=== PATIENT | female | born 2000 | race Caucasian/White ===

== ENCOUNTER 2019-07-24 21:27 | Inpatient (IN) | payer MEDICAID, SELFPAY ==
[2019-07-24] MEDS ORDERED: CLINDAMYCIN 600MG/D5W 600 MG/50 ML BAG IV ONE (22:34)
[2019-07-24] MEDS ORDERED: NA CHLORIDE 0.9% 500 ML ONE (22:34)
[2019-07-24] MEDS ORDERED: NA CHLORIDE 0.9% 2,000 ML ONE (22:34)
[2019-07-24 22:45] LABS: Absolute Lymphocytes (CBC) 1.8 K/uL (0.7-4.9); Basophils % 0.6 % (0-1.3); Hematocrit 36.3 % (36.0-45.0); Lymphocytes % 12.4 % (15.3-44.8); MPV 8.2 fL (7.6-11.3); RBC Red Blood Cell Count 4.32 M/uL (3.86-4.86)
[2019-07-24 22:48] LABS: Protime INR 1.11
[2019-07-24 23:07] LABS: ALT/SGPT 17 U/L (12-78); AST/SGOT 12 U/L (15-37); Albumin 3.5 g/dL (3.4-5.0); Alkaline Phosphatase 125 U/L (45-117); BUN Blood Urea Nitrogen 13 mg/dL (7-18); Bicarbonate 24 mmol/L (21-32); Bilirubin Direct 0.1 mg/dL (0-0.2); Bilirubin Total 0.3 mg/dL (0.2-1.0); CKMB Creatine Kinase MB < 1.0 ng/mL (0.3-3.6); Creatine Phosphokinase 46 U/L (26-192); Glucose Level 90 mg/dL (74-106); Lipase 173 U/L (73-393); Potassium 3.7 mmol/L (3.5-5.1); Protein, Total 8.2 g/dL (6.4-8.2); Sodium Level 137 mmol/L (136-145); Troponin (Emerg Dept Use Only) < 0.02 ng/mL (0.0-0.045)
[2019-07-24] MEDS ORDERED: IBUPROFEN 400 MG TAB ONE (23:14)
[2019-07-24] MEDS ORDERED: HYDROCODONE/APAP 5/325 MG TAB ONE (23:14)
[2019-07-25 00:02] LABS: Urine Blood TRACE (NEG); Urine Glucose NEGATIVE (NEG); Urine Protein 1+ (NEG)
[2019-07-25 00:03] LABS: Urine Bacteria >50 /HPF (<20); Urine Culture Reflex Order REFLEXED; Urine RBC <5 /HPF (NONE SEEN)
[2019-07-25] MEDS ORDERED: GENTAMICIN SULF 80 MG/2ML INJ ONE (00:40)
[2019-07-25] MEDS ORDERED: ONDANSETRON 4 MG/2 ML VIAL IV PRN (00:54)
[2019-07-25] MEDS ORDERED: MORPHINE 2 MG/ML SYR IV PRN (00:54)
[2019-07-25] MEDS ORDERED: ACETAMINOPHEN 500 MG TAB PO PRN (00:54)
[2019-07-25] MEDS ORDERED: NA CHLORIDE 0.9% 100 ML IV ONE (00:54)
[2019-07-25] MEDS ORDERED: NA CHLORIDE 0.9% 1,000 ML IV SCH (01:00)
--- NOTE | 2019-07-25 01:41 | EDPHYS ---
Physician Documentation [facility] Name: Marek Cage Age: 19 yrs Sex: Female : 2000 Arrival Date: 07/24/2019 Time: 21:29 Bed 26 Private MD: ED Physician Guido Skelton HPI: 07/24 22:39 This 19 yrs old Female presents to ER via Ambulatory with complaints of Fever. snw 22:39 The patient reports fever, that was measured at 103 degrees Fahrenheit. Onset: The snw symptoms/episode began/occurred suddenly, 3 day(s) ago, and became worse today. Modifying factors: there are no obvious modifying factors. Associated signs and symptoms: Pertinent positives: abdominal pain, chills. Severity of symptoms: At their worst the symptoms were moderate severe. The patient has not experienced similar symptoms in the past. vaginal delivery 2 weeks ago of 1st baby, noted vaginal dc and fever x three days, fever today spiked to 103. 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 - Social history:: Smoking status: Patient/guardian denies using tobacco. - Ebola Screening: : Patient denies travel to an Ebola-affected area in the 21 days before illness onset. ROS: 22:37 Constitutional: Positive for fever, chills x 3 days, negative weight loss, Eyes: snw Negative for injury, pain, redness, and discharge, Neck: Negative for injury, pain, and swelling, Cardiovascular: Negative for chest pain, palpitations, and edema, Respiratory: Negative for shortness of breath, cough, wheezing, and pleuritic chest pain. 22:37 Back: Negative for injury and pain. 22:37 MS/Extremity: Negative for injury and deformity, Skin: Negative for injury, rash, and discoloration, Neuro: Negative for headache, weakness, numbness, tingling, and seizure, Psych: Negative for depression, anxiety, suicide ideation, homicidal ideation, and hallucinations. 22:37 Abdomen/GI: Positive for abdominal pain, of the suprapubic area, right lower quadrant and left lower quadrant. 22:37 : Positive for vaginal discharge. Exam: 22:37 Head/Face: Normocephalic, atraumatic. Eyes: Pupils equal round and reactive to light, snw extra-ocular motions intact. Lids and lashes normal. Conjunctiva and sclera are non-icteric and not injected. Cornea within normal limits. Periorbital areas with no swelling, redness, or edema. ENT: Nares patent. No nasal discharge, no septal abnormalities noted. Tympanic membranes are normal and external auditory canals are clear. Oropharynx with no redness, swelling, or masses, exudates, or evidence of obstruction, uvula midline. Mucous membranes moist. Neck: Trachea midline, no thyromegaly or masses palpated, and no cervical lymphadenopathy. Supple, full range of motion without nuchal rigidity, or vertebral point tenderness. No Meningismus. Chest/axilla: Normal chest wall appearance and motion. Nontender with no deformity. No lesions are appreciated. 22:37 Respiratory: Lungs have equal breath sounds bilaterally, clear to auscultation and percussion. No rales, rhonchi or wheezes noted. No increased work of breathing, no retractions or nasal flaring. Back: No spinal tenderness. No costovertebral tenderness. Full range of motion. Skin: Warm, dry with normal turgor. Normal color with no rashes, no lesions, and no evidence of cellulitis. MS/ Extremity: Pulses equal, no cyanosis. Neurovascular intact. Full, normal range of motion. Neuro: Awake and alert, GCS 15, oriented to person, place, time, and situation. Cranial nerves II-XII grossly intact. Motor strength 5/5 in all extremities. Sensory grossly intact. Cerebellar exam normal. Normal gait. Psych: Awake, alert, with orientation to person, place and time. Behavior, mood, and affect are within normal limits. 22:37 Constitutional: The patient appears alert, awake, febrile, uncomfortable. 22:37 Cardiovascular: Rate: tachycardic, Heart sounds: normal. 22:37 Abdomen/GI: Inspection: abdomen appears normal, Bowel sounds: normal, Palpation: moderate abdominal tenderness, in the right lower quadrant and left lower quadrant. Vital Signs: 21:47 BP 140 / 96; Pulse 132; Resp 20; Temp 102.7; Pulse Ox 99% on R/A; Height 6 ft. 0 in. aj1 (182.88 cm) (R); Pain 7/10; 22:20 Weight 72.57 kg; tr5 23:00 BP 124 / 85; Pulse 79; Resp 19; Pulse Ox 99% on R/A; tr5 07/25 00:30 BP 119 / 73; Pulse 79; Resp 18; Pulse Ox 99% on R/A; tr5 01:10 BP 118 / 73; Pulse 78; Resp 16; Pulse Ox 100% ; tr5 01:30 Temp 98.8(O); tr5 07/24 22:20 Body Mass Index 21.70 (72.57 kg, 182.88 cm) tr5 MDM: 07/24 22:17 Patient medically screened. [facility] 07/25 01:17 Data reviewed: vital signs, nurses notes. Data interpreted: Pulse oximetry: on room air snw is 100 %. Interpretation: normal. Counseling: I had a detailed discussion with the patient and/or guardian regarding: the historical points, exam findings, and any diagnostic results supporting the discharge/admit diagnosis, lab results, radiology results, the need for further work-up and treatment in the hospital. Physician consultation: Tayo Liu MD was called at 01:20, was contacted at 01:20, regarding admission, to the medical/surgical unit. 07/24 22:16 Order name: Basic Metabolic Panel [facility] 07/24 22:16 Order name: Blood Culture Adult (2) [facility] 07/24 22:16 Order name: CBC with Diff [facility] 07/24 22:16 Order name: Ckmb [facility] 07/24 22:16 Order name: CPK; Complete Time: 23:17 w 07/24 22:16 Order name: Lactate; Complete Time: 22:57 [facility] 07/24 22:16 Order name: LFT's; Complete Time: 23:17 w 07/24 22:16 Order name: Lipase; Complete Time: 23:17 w 07/24 22:16 Order name: Procalcitonin; Complete Time: 23:46 w 07/24 22:16 Order name: Protime (+inr); Complete Time: 23:17 w 07/24 22:16 Order name: Ptt, Activated; Complete Time: 23:17 snw 07/24 22:16 Order name: Troponin (emerg Dept Use Only); Complete Time: 23:17 [facility] 07/24 22:16 Order name: Urine Microscopic Only; Complete Time: 00:13 [facility] 07/24 22:18 Order name: Basic Metabolic Panel; Complete Time: 23:17 [facility] 07/24 22:16 Order name: Chest Single View XRAY [facility] 07/24 22:16 Order name: CT Abd/Pelvis - IV Contrast Only [facility] 07/24 22:18 Order name: Blood Culture [facility] 07/24 22:18 Order name: CBC with Automated Diff; Complete Time: 23:17 [facility] 07/24 22:18 Order name: CKMB Creatine Kinase MB; Complete Time: 23:17 [facility] 07/24 22:48 Order name: Urine Dipstick--Ancillary (enter results); Complete Time: 00:13 [facility] 07/24 22:48 Order name: Urine --Ancillary (enter results); Complete Time: 00:13 [facility] 07/24 23:37 Order name: Glucose, Ancillary Testing; Complete Time: 23:46 [facility] 07/25 01:15 Order name: Wet Prep [facility] 07/25 01:33 Order name: Urine Culture [facility] 07/25 02:07 Order name: CBC with Automated Diff [facility] 07/25 02:07 Order name: CBC with Automated Diff [facility] 07/25 02:07 Order name: Comprehensive Metabolic Panel [facility] 07/25 02:07 Order name: Comprehensive Metabolic Panel [facility] 07/25 02:17 Order name: Wet Prep [facility] 07/24 22:16 Order name: Accucheck; Complete Time: 02:33 [facility] 07/24 22:16 Order name: Cardiac monitoring; Complete Time: 22:39 [facility] 07/24 22:16 Order name: EKG - Nurse/Tech; Complete Time: 22:39 [facility] 07/24 22:16 Order name: IV Saline Lock - Large Bore; Complete Time: 22:20 [facility] 07/24 22:16 Order name: Labs collected and sent; Complete Time: 22:20 [facility] 07/24 22:16 Order name: O2 Per Protocol; Complete Time: 22:20 [facility] 07/24 22:16 Order name: O2 Sat Monitoring; Complete Time: 22:20 [facility] 07/24 22:16 Order name: Urine Dipstick-Ancillary (obtain specimen); Complete Time: 22:53 snw 07/25 01:15 Order name: Pelvic Exam Setup; Complete Time: 02:04 [facility] 07/25 02:06 Order name: CONS Pharmacy Consult EDMS 07/25 02:06 Order name: [facility] EDIL Administered Medications: 07/24 23:26 Drug: Motrin 400 mg Route: PO; tr5 23:52 Follow up: Response: Marked relief of symptoms tr5 23:52 Drug: Clindamycin 600 mg Route: IVPB; Infused Over: 30 mins; Site: right antecubital; tr5 07/25 01:08 Follow up: IV Status: Completed infusion tr5 07/24 23:53 Drug: NS 0.9% (30 ml/kg) 30 ml/kg Route: IV; Rate: bolus; Site: right antecubital; tr5 07/25 02:05 Follow up: IV Status: Completed infusion; IV Intake: 2177ml tr5 01:07 Not Given (Patient Refused): [place] 5 mg-325 mg 1 tabs PO once; RASS on ADMIN: Combtv4, tr5 Very Agttd3, Agttd2, Rstlss1, AlertClm0, Drwsy-1, Lt Sdtn-2, Mod Sdtn-3, Dp Sdtn-4, UnArsble-5 01:08 Drug: Gentamicin 5 mg/kg Route: IVPB; Infused Over: 60 mins; Site: right antecubital; tr5 02:25 Follow up: IV Status: Completed infusion tr5 02:32 Drug: [place] 5 mg-325 mg 1 tabs {Note: RASS:0.} Route: PO; tr5 Point of Care Testing: Blood Glucose: 07/24 23:20 Blood Glucose: 109 mg/dL; tr5 Ranges: Critical Glucose Levels:Adult <50 mg/dl or >400 mg/dl <40 mg/dl or >180 mg/dl Disposition: 07/25 12:46 Co-signature as Attending Physician, Guido Skelton MD I agree with the assessment and liliana plan of care. Disposition: 07/25/19 01:17 Hospitalization ordered by Tayo Liu for Inpatient Admission. Preliminary diagnosis are Pyelonephritis, Fever presenting with conditions classified elsewhere. - Bed requested for Telemetry/MedSurg (Inpatient). - Status is Inpatient Admission. tr5 - Condition is Stable. - Problem is new. - Symptoms have worsened. UTI on Admission? Yes Signatures: Dispatcher [employer] EDLacie Jaimes RN RN aj1 Guido Skelton MD MD cha Therrien, Shelly, PALLIATIVE CARE PHYSICIAN-C PALLIATIVE CARE PHYSICIAN-Csnw Ca [place] ar5 Clayton aMn RN RN tr5 Corrections: (The following items were deleted from the chart) 01:43 01:17 Hospitalization Ordered by Tayo Liu MD for Inpatient Admission. Preliminary ar5 diagnosis is Pyelonephritis; Fever presenting with conditions classified elsewhere. Bed requested for Telemetry/MedSurg (Inpatient). Status is Inpatient Admission. Condition is Stable. Problem is new. Symptoms have worsened. UTI on Admission? Yes. snw 02:40 01:43 07/25/2019 01:17 Hospitalization Ordered by Tayo Liu MD for Inpatient tr5 Admission. Preliminary diagnosis is Pyelonephritis; Fever presenting with conditions classified elsewhere. Bed requested for Telemetry/MedSurg (Inpatient). Status is Inpatient Admission. Condition is Stable. Problem is new. Symptoms have worsened. UTI on Admission? Yes. ar5
--- NOTE | 2019-07-25 01:41 | ER ---
Nurse's Notes [facility] Name: Marek Cage Age: 19 yrs Sex: Female : 2000 Arrival Date: 07/24/2019 Time: 21:29 Bed 26 [facility] MD: Diagnosis: Pyelonephritis;Fever presenting with conditions classified elsewhere Presentation: 07/24 21:45 Presenting complaint: Patient states: Fever and green vaginal discharge for the past 3 aj1 days. Patient reports that she had a baby 2 weeks ago, that was born vaginally. Patient is currently breast feeding. Denies N/V/D. Transition of care: patient was not received from another setting of care. Onset of symptoms was June 2019. Risk Assessment: Do you want to hurt yourself or someone else? Patient reports no desire to harm self or others. Initial Sepsis Screen: Does the patient meet any 2 criteria? Temp <36.0*C (96.8*F)) or > 38.3*C (100.9*F). HR > 90 bpm. Yes Does the patient have a suspected source of infection? Yes: Other: green vaginal discharge If YES to both, name of provider notified: Guido Skelton MD. Care prior to arrival: None. 21:45 Method Of Arrival: Ambulatory aj1 21:45 Acuity: DIANA 3 aj1 Triage Assessment: 21:47 General: Appears in no apparent distress. uncomfortable, Behavior is calm, cooperative, aj1 appropriate for age. Pain: Complains of pain in suprapubic area and right iliac crest Pain currently is 7 out of 10 on a pain scale. Neuro: Level of Consciousness is awake, alert, obeys commands, Oriented to person, place, time, situation. Cardiovascular: Patient's skin is warm and dry. Respiratory: Airway is patent Respiratory effort is even, unlabored, Respiratory pattern is regular, symmetrical. 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 - Social history:: Smoking status: Patient/guardian denies using tobacco. - Ebola Screening: : Patient denies travel to an Ebola-affected area in the 21 days before illness onset. Screenin/27 00:00 Tuberculosis screening: No symptoms or risk factors identified. Fall Risk None tr5 identified. 00:00 Nutritional screening: No deficits noted. tr5 02:38 Abuse screen: Denies threats or abuse. tr5 Assessment: 07/24 23:00 Reassessment: Patient appears in no apparent distress at this time. Patient and/or tr5 family updated on plan of care and expected duration. Pain level reassessed. Patient is alert, oriented x 3, equal unlabored respirations, skin warm/dry/pink. 07/25 00:00 Reassessment: No changes from previously documented assessment. Patient and/or family tr5 updated on plan of care and expected duration. Pain level reassessed. Patient is alert, oriented x 3, equal unlabored respirations, skin warm/dry/pink. 01:15 Reassessment: Patient appears in no apparent distress at this time. Patient and/or tr5 family updated on plan of care and expected duration. Pain level reassessed. Patient is alert, oriented x 3, equal unlabored respirations, skin warm/dry/pink. Pt's spouse is at bedside. Pt appears to be resting in bed. 02:06 Reassessment: Patient appears in no apparent distress at this time. No changes from tr5 previously documented assessment. Patient and/or family updated on plan of care and expected duration. Pain level reassessed. Patient is alert, oriented x 3, equal unlabored respirations, skin warm/dry/pink. Vital Signs: 07/24 21:47 BP 140 / 96; Pulse 132; Resp 20; Temp 102.7; Pulse Ox 99% on R/A; Height 6 ft. 0 in. aj1 (182.88 cm) (R); Pain 7/10; 22:20 Weight 72.57 kg; tr5 23:00 BP 124 / 85; Pulse 79; Resp 19; Pulse Ox 99% on R/A; tr5 07/25 00:30 BP 119 / 73; Pulse 79; Resp 18; Pulse Ox 99% on R/A; tr5 01:10 BP 118 / 73; Pulse 78; Resp 16; Pulse Ox 100% ; tr5 01:30 Temp 98.8(O); tr5 07/24 22:20 Body Mass Index 21.70 (72.57 kg, 182.88 cm) tr5 ED Course: 07/24 21:29 Patient arrived in ED. cl3 21:47 Triage completed. aj1 21:47 Arm band placed on Patient placed in an exam room. aj1 22:05 Urine collected: clean catch specimen, clear. tr5 22:07 Alie Banks FNP-C [facility] snw 22:07 Guido Skelton MD is Attending Physician. snw 22:08 Inserted saline lock: 20 gauge in right antecubital area, using aseptic technique. tr5 22:10 Initial lab(s) drawn, by me, sent to lab. tr5 22:10 First set of blood cultures drawn by me. tr5 22:19 Clayton Man, GABRIELE is Primary Nurse. tr5 22:26 Radiology exam delayed due to lab results not completed at this time. IV insertion vm2 attempt and/or patient not having appropriate IV at this time. 22:30 EKG done, by ED staff. tr5 22:37 Chest Single View XRAY In Process Unspecified. EDMS 22:42 Radiology exam delayed due to lab results not completed at this time. (BUN/Creatinine). vm2 23:03 Radiology exam delayed due to lab results not completed at this time. (BUN/Creatinine). vm2 23:20 Second set of blood cultures drawn. tr5 23:51 CT Abd/Pelvis - IV Contrast Only In Process Unspecified. EDMS 07/25 00:00 No provider procedures requiring assistance completed. Patient admitted, IV remains in tr5 place. 01:16 Tayo Liu MD is Hospitalizing Provider. snw 02:39 Bed in low position. Call light in reach. Side rails up X 1. tr5 Administered Medications: 07/24 23:26 Drug: Motrin 400 mg Route: PO; tr5 23:52 Follow up: Response: Marked relief of symptoms tr5 23:52 Drug: Clindamycin 600 mg Route: IVPB; Infused Over: 30 mins; Site: right antecubital; tr5 07/25 01:08 Follow up: IV Status: Completed infusion tr5 07/24 23:53 Drug: NS 0.9% (30 ml/kg) 30 ml/kg Route: IV; Rate: bolus; Site: right antecubital; tr5 07/25 02:05 Follow up: IV Status: Completed infusion; IV Intake: 2177ml tr5 01:07 Not Given (Patient Refused): [place] 5 mg-325 mg 1 tabs PO once; RASS on ADMIN: Combtv4, tr5 Very Agttd3, Agttd2, Rstlss1, AlertClm0, Drwsy-1, Lt Sdtn-2, Mod Sdtn-3, Dp Sdtn-4, UnArsble-5 01:08 Drug: Gentamicin 5 mg/kg Route: IVPB; Infused Over: 60 mins; Site: right antecubital; tr5 02:25 Follow up: IV Status: Completed infusion tr5 02:32 Drug: [place] 5 mg-325 mg 1 tabs {Note: RASS:0.} Route: PO; tr5 Point of Care Testing: Blood Glucose: 07/24 23:20 Blood Glucose: 109 mg/dL; tr5 Ranges: Intake: 07/25 02:05 IV: 2177ml; Total: 2177ml. tr5 Outcome: 00:00 Admitted to Med/surg accompanied by tech, via wheelchair, with chart, Report called to trLance Valdivia RN 00:00 Condition: stable 00:00 Instructed on the need for admit. 01:17 Decision to Hospitalize by Provider. snw 02:40 Patient left the ED. tr5 Signatures: Dispatcher [employer] EDLacie Jaimes RN RN aj1 Alie Banks, GRIEVANCE AND APPEALS SPECIALIST-C GRIEVANCE AND APPEALS SPECIALIST-Csnw Belkis Cueto 2 Clayton Man RN RN tr5 Katerina Unger cl3
[2019-07-25] MEDS ORDERED: HYDROCODONE/APAP 5/325 MG TAB ONE (02:31)
[2019-07-25 03:07] VITALS: BMI 21.7
[2019-07-25] MEDS ORDERED: CEFTRIAXONE/SWI 1gm 1 GM/10 ML SYR IV SCH (06:00)
[2019-07-25] MEDS ORDERED: CEFTRIAXONE 1 GM/NS 50 ML 1 GM/50 ML BAG IV SCH (06:00)
--- NOTE | 2019-07-25 07:51 | RAD REPORT ---
EXAM DESCRIPTION: Frankie Single View07/24/2019 10:34 pm CLINICAL HISTORY: Fever COMPARISON: none FINDINGS: The lungs appear clear of acute infiltrate. The heart is normal size IMPRESSION: No acute abnormalities displayed
--- NOTE | 2019-07-25 08:37 | EKG ---
Test Date: 2019-07-24 Test Time: 22:38:38 Data Reviewer: TR MEASUREMENT RESULTS: Intervals: Rate: 109 ND: 164 QRSD: 80 QT: 332 QTc: 447 [place]: P: 44 ND: 164 QRS: 30 T: 50 INTERPRETIVE STATEMENTS: Sinus tachycardia Cannot rule out Anterior infarct, age undetermined Abnormal ECG No previous ECG available for comparison Electronically Signed On 07-25-19 08:36:33 CDT by Rylan Quinn
[2019-07-25] MEDS ORDERED: AZITHROMYCIN 250 MG TAB PO ONE (08:41)
[2019-07-25 09:18] VITALS: BP 113/73; TEMP 97.3
[2019-07-25 09:38] VITALS: O2SAT 99
--- NOTE | 2019-07-25 10:54 | RAD REPORT ---
EXAM DESCRIPTION: CT - Abdomen Pelvis W Contrast - 07/25/2019 1:58 am COMPARISON: None CLINICAL HISTORY: Abdominal pain TECHNIQUE: Multiple helical axial images were obtained through the abdomen and pelvis using intraven ous contrast. Coronal and sagittal reformatted images were obtained. All CT scans at this facility use dose modulation, iterative reconstruction, and/or weight-based dosi ng when appropriate to reduce radiation dose to as low as reasonably achievable. FINDINGS: Lung bases: Appear unremarkable. Liver: Homogenous attenuation is noted. Gallbladder/biliary: Appears unremarkable Pancreas: Unremarkable. No evidence of ductal enlargement. Spleen: Appears unremarkable. No splenomegaly. Adrenals: Unremarkable. Kidneys and ureters: No evidence of hydronephrosis. Normal enhancement. A 4 mm stone at the inferio r pole of the left kidney is present. There is a 2 cm hypodense lesion in the midpole of the right ki dney which appears somewhat wedge-shaped. Subcentimeter hypodensity in the inferior pole of the left kidney is present too small to characterize. There is trace perinephric fluid. Bladder: Unremarkable. Pelvic organs: Uterus appears prominent. Ovaries appear normal in size. Bowel: No evidence of bowel obstruction. No bowel wall thickening. Appendix appears unremarkable. Vasculature: Unremarkable. Peritoneum: No free air. No significant free fluid. Lymph nodes: Unremarkable. Soft tissues: Unremarkable. Bones: Unremarkable. IMPRESSION: 1. Hypodense region in the midpole of the right kidney which could represent an area of pyelonephritis versus cyst, consider follow-up ultrasound. Trace right perinephric fluid which can be seen with underlying urinary tract infection, clinical correlation recommended. 2. Nonobstructing left renal stone. 3. Prominence of the uterus of uncertain significance. Electronically signed by: David Luther MD 07/25/2019 12:20 AM CDT Due to temporary technical issues with the PACS/Fluency reporting system, reports are being signed by the in house radiologist as a courtesy to ensure prompt reporting. The interpreting radiologist is f ully responsible for the content of the report.
--- NOTE | 2019-07-25 12:22 | P.SSS ---
Patient History Date of Service: 07/25/19 Reason for admission: Pyelonephritis/PID History of Present Illness: Patient is a 19-year-old female who came to the hospital with fever and a greenish discharge. Patient has been having some dysuria as well. Patient having tenderness over the right flank region. Patient was brought into the ER for further evaluation. Patient is 2 weeks period she denies any recent sexual history. However, in light of the fact that she has a discharge will send off of gonorrhea and Chlamydia. She does appear to have pyelonephritis. We will treat her with IV antibiotics to cover both disease processes. At this time patient will be admitted for observation. Allergies No Known Allergies Allergy (Verified 07/25/19 03:05) Home Medications: Cefdinir [Omnicef] 300 mg PO BID #14 capsule 07/25/19 - Past Medical/Surgical History Has patient received pneumonia vaccine in the past: No Diabetic: No -: seizure Past Surgical History: Patient denies surgical history - Family History Family History: Reviewed- Non-Contributory - Social History Smoking Status: Never smoker Alcohol use: Yes CD- Drugs: No Caffeine use: Yes Place of Residence: Home Review of Systems 10-point ROS is otherwise unremarkable Physical Examination - Vital Signs Temperature: 97.3 F Blood Pressure: 113/73 Pulse: 61 Respirations: 18 Pulse Ox (%): 99 - Physical Exam General: Alert, In no apparent distress, Oriented x3 HEENT: Atraumatic, PERRLA, Mucous membr. moist/pink, EOMI, Sclerae nonicteric Neck: Supple, 2+ carotid pulse no bruit, No LAD, Without JVD or thyroid abnormality Respiratory: Clear to auscultation bilaterally, Normal air movement Cardiovascular: Regular rate/rhythm, Normal S1 S2, No murmurs Gastrointestinal: Normal bowel sounds, Soft and benign, Non-distended, Tenderness ( Right flank tenderness as well as some mild left flank tenderness) Musculoskeletal: No clubbing, No swelling, No tenderness Integumentary: No rashes Neurological: Normal gait, Normal speech, Normal strength at 5/5 x4 extr, Normal tone, Sensation intact, Cranial nerves 3-12 intact, Normal affect Lymphatics: No axilla or inguinal lymphadenopathy - Studies Laboratory Data (last 24 hrs) 07/24/19 22:11: PT 13.1 H, INR 1.11, APTT 30.1 07/24/19 22:11: WBC 14.3 H, Hgb 12.1, Hct 36.3, Plt Count 288 07/24/19 22:11: Sodium 137, Potassium 3.7, BUN 13, Creatinine 0.87, Glucose 90, Total Bilirubin 0.3, AST 12 L, ALT 17, Alkaline Phosphatase 125 H, Lipase 173 Microbiology Data (last 24 hrs): 07/25/19 01:52 Cervical Wet Prep - Final - Diagnosis (Problem(s)) (1) Pyelonephritis Status: Acute (2) Pelvic inflammatory disease Status: Acute Treatment Summary: Patient was treated with IV antibiotics. Patient tolerated well. This was switched to oral antibiotics. Patient is wanting to go home. At this time will sent home with oral antibiotics for 14 more days. Patient will be on the omnicef which is compatible with . Patient was given Zithromax for possible chlamydia infection. - Disposition Discharge Date: 07/25/19 Disposition: ROUTINE DISCHARGE Condition: GOOD Patient Discharge Instructions: OK TO DC IV AND DC HOME. FOLLOW-UP WITH OB IN 1 WEEKS. RETURN TO THE ER IF SYMPTOMS WORSENS. CALL ME AT [phone] IF ANYT QUESTIONS REGARDING HOSPITAL STAY Diet: Regular Activity: Fall precautions Critical Care: No Time Spent Managing Pts Care (In Minutes): 50
[2019-07-28 21:50] LABS: C.trachomatis RNA,TMA Not Detected (Not Detected)
== END 2019-07-25 10:10 | disposition home or self-care (01) | DRG 776 ==
LOC: ER 21:27 → 2ND 07-25 02:30
PROVIDERS: ADMIT Hospitalist; ATTEND Hospitalist
DX: O86.21 Infection of kidney following delivery (principal); O86.19 Other infection of genital tract following delivery
CPT/HCPCS: 36415; 71045; 74177; 80048; 80076; 81003; 81015; 81025; 82550; 82553; 82962; 83605; 83690; 84145; 84484; 85025; 85610; 85730; 87040; 87077; 87086; 87088; 87186; 87210; 87490; 87590; 93005; 96365; 96367; 99285; J0696; J1580; J7030; Q9967